=== PATIENT | female | born 1995 | race Caucasian/White ===

== ENCOUNTER 2017-07-24 15:59 | Emergency (ER) | payer BC, OTHER ==
--- NOTE | 2017-07-24 16:49 | ER Document Report ---
ED Medical Screen (RME) - General Chief Complaint: Vaginal Bleeding Stated Complaint: VAGINAL BLEEDING Time Seen by Provider: 07/24/17 16:47 Mode of Arrival: Ambulatory Information source: Patient TRAVEL OUTSIDE OF THE [place] IN LAST 30 DAYS: No - HPI Patient complains to provider of: vaginal bleeding in Onset: Just prior to arrival - pt is approx 15 weeks along with c/o heavy vaginal bleeding and mild cramping for the past 2 hours. - Related Data Allergies/Adverse Reactions: No Known Allergies Allergy (Verified 07/24/17 16:31) Home Medications: Current Home Medications Enoxaparin Sodium [Lovenox Inj 40 mg/0.4 ml Disp.syrin] 1 dose SUBCUT DAILY 05/02 [History] Labetalol HCl 1 tab PO BID 07/24/17 [History] Sertraline HCl [Zoloft] 1 tab PO DAILY 07/24/17 [History] Trazodone HCl 1 tab PO DAILY 07/24/17 [History] Past Medical History - Social History Chew tobacco use (# tins/day): No Frequency of alcohol use: Occasional Drug Abuse: None Renal/ Medical History: Denies: Hx Peritoneal Dialysis Physical Exam - Vital signs Vitals: Temp Pulse Resp BP Pulse Ox 99.0 F 104 H 22 H 141/77 H 98 07/24/17 16:10 07/24/17 16:10 07/24/17 16:10 07/24/17 16:10 07/24/17 16:10 Course - Vital Signs Vital signs: Temp Pulse Resp BP Pulse Ox 99.0 F 104 H 22 H 141/77 H 98 07/24/17 16:10 07/24/17 16:10 07/24/17 16:10 07/24/17 16:10 07/24/17 16:10
[2017-07-24 17:25] LABS: ABSOLUTE EOSINOPHILS # (AUTO) 0.3 10^3/uL (0.0-0.6); ABSOLUTE LYMPHOCYTES (AUTO) 2.4 10^3/uL (0.5-4.7); ABSOLUTE MONOCYTES (AUTO) 0.7 10^3/uL (0.1-1.4); ABSOLUTE NEUT (AUTO) 7.1 10^3/uL (1.7-8.2); BASOPHILS % (AUTO) 0.2 % (0-2); EOSINOPHILS % (AUTO) 2.6 % (0-6); HEMATOCRIT 37.3 % (36.0-47.0); HGB HCT DIFFERENCE 1.7; LYMPHOCYTES % (AUTO) 23.1 % (13-45); MEAN CORPUSCULAR HEMOGLOBIN 29.8 pg (27.0-33.4); MEAN CORPUSCULAR VOLUME 85 fl (80-97); MONOCYTES % (AUTO) 6.7 % (3-13); RED BLOOD COUNT 4.38 10^6/uL (3.72-5.28); RED CELL DISTRIBUTION WIDTH 12.8 % (11.5-14.0); SEGMENTED NEUTROPHILS % (AUTO) 67.4 % (42-78); WHITE BLOOD COUNT 10.6 10^3/uL (4.0-10.5)
[2017-07-24 17:40] LABS: ALANINE AMINOTRANSFERASE 33 U/L (9-52); ALBUMIN 3.8 g/dL (3.5-5.0); ALKALINE PHOSPHATASE 76 U/L (38-126); ANION GAP 13 (5-19); ASPARTATE AMINO TRANSFERASE 15 U/L (14-36); BILIRUBIN,DIRECT 0.3 mg/dL (0.0-0.4); BILIRUBIN,TOTAL 0.3 mg/dL (0.2-1.3); BLOOD UREA NITROGEN 8 mg/dL (7-20); CALCIUM 9.4 mg/dL (8.4-10.2); CARBON DIOXIDE 22 mmol/L (22-30); CHLORIDE 105 mmol/L (98-107); CREATININE RESULT 0.76 mg/dL (0.52-1.25); GLUCOSE 91 mg/dL (75-110); POTASSIUM 4.2 mmol/L (3.6-5.0); SODIUM 139.9 mmol/L (137-145)
[2017-07-24 17:44] LABS: APPEARANCE,URINE SLIGHTLY-CLOUDY; BILIRUBIN,URINE NEGATIVE (NEGATIVE); GLUCOSE, URINE NEGATIVE (NEGATIVE); KETONES,URINE TRACE mg/dL (NEGATIVE); LEUKOCYTE ESTERASE,URINE NEGATIVE (NEGATIVE); NITRITE,URINE NEGATIVE (NEGATIVE); PROTEIN,URINE 30 mg/dL (NEGATIVE); URINE SPECIFIC GRAVITY 1.033
--- NOTE | 2017-07-24 18:23 | ER Document Report ---
ED GI/ <FLOWER SAUCEDO - Last Filed: 07/24/17 19:19> - General Mode of Arrival: Ambulatory Information source: Patient TRAVEL OUTSIDE OF THE [place] IN LAST 30 DAYS: No <SUGEY ZHANG - Last Filed: 07/24/17 19:44> - General Chief Complaint: Vaginal Bleeding Stated Complaint: VAGINAL BLEEDING Time Seen by Provider: 07/24/17 16:47 Notes: Patient is a 22-year-old female who presents to the emergency department today for complaints of vaginal bleeding. Patient states she has had vaginal bleeding off and on since 07/02. Patient is . Patient is also on Lovenox for factor V deficiency. Patient denies passing clots. (SUGEY ZHANG) - Related Data Allergies/Adverse Reactions: No Known Allergies Allergy (Verified 07/24/17 16:31) Home Medications: Current Home Medications Enoxaparin Sodium [Lovenox Inj 40 mg/0.4 ml Disp.syrin] 1 dose SUBCUT DAILY 05/02 [History] Labetalol HCl 1 tab PO BID 07/24/17 [History] Sertraline HCl [Zoloft] 1 tab PO DAILY 07/24/17 [History] Trazodone HCl 1 tab PO DAILY 07/24/17 [History] Past Medical History - General Information source: Patient - Social History Smoking Status: Never Smoker Cigarette use (# per day): No Chew tobacco use (# tins/day): No Frequency of alcohol use: Occasional Drug Abuse: None Lives with: Family Family History: Reviewed & Not Pertinent Patient has suicidal ideation: No Patient has homicidal ideation: No - Medical History Medical History: Negative Surgical Hx: Negative <SUGEY ZHANG - Last Filed: 07/24/17 19:44> Review of Systems - Review of Systems Constitutional: No symptoms reported EENT: No symptoms reported Cardiovascular: No symptoms reported Respiratory: No symptoms reported Gastrointestinal: No symptoms reported Genitourinary: No symptoms reported Female Genitourinary: See HPI, , Vaginal bleeding Musculoskeletal: No symptoms reported Skin: No symptoms reported Hematologic/Lymphatic: No symptoms reported Neurological/Psychological: No symptoms reported -: Yes All other systems reviewed and negative <SUGEY ZHANG - Last Filed: 07/24/17 19:44> Physical Exam - Vital signs Interpretation: Normal - General General appearance: Appears well, Alert - HEENT Head: Normocephalic, Atraumatic Eyes: Normal Pupils: PERRL - Respiratory Respiratory status: No respiratory distress Chest status: Nontender Breath sounds: Normal Chest palpation: Normal - Cardiovascular Rhythm: Regular Heart sounds: Normal auscultation Murmur: No - Abdominal Inspection: Obese Distension: No distension Bowel sounds: Normal Tenderness: Nontender - soft Organomegaly: No organomegaly - Back Back: Normal, Nontender - Extremities General upper extremity: Normal inspection, Normal ROM. No: Edema General lower extremity: Normal inspection, Normal ROM. No: Edema - Neurological Neuro grossly intact: Yes Cognition: Normal Orientation: AAOx4 [place] Coma Scale Eye Opening: Spontaneous [place] Coma Scale Verbal: Oriented [place] Coma Scale Motor: Obeys Commands [place] Coma Scale Total: 15 Speech: Normal - Psychological Associated symptoms: Normal affect, Normal mood - Skin Skin Temperature: Warm Skin Moisture: Dry Skin Color: Normal <SUGEY ZHANG - Last Filed: 07/24/17 19:44> - Vital signs Vitals: Temp Pulse Resp BP Pulse Ox 99.0 F 104 H 22 H 141/77 H 98 07/24/17 16:10 07/24/17 16:10 07/24/17 16:10 07/24/17 16:10 07/24/17 16:10 Course - Laboratory Result Diagrams: 07/24/17 17:00 07/24/17 17:00 - Diagnostic Test Radiology reviewed: Reports reviewed - Ultrasound shows a 15 week 6 day viable IUP. There is no subchorionic bleed or other abnormality noted. <FLOWER SAUCEDO - Last Filed: 07/24/17 19:19> - Laboratory Result Diagrams: 07/24/17 17:00 07/24/17 17:00 <SUGEY ZHANG - Last Filed: 07/24/17 19:44> - Re-evaluation Re-evalutation: 07/24/17 19:20 Ultrasound shows a 15 week 6 day intrauterine with heart rate 153 and no abnormalities. Specifically no subchorionic bleeding. Hemoglobin is 13.0, this is higher than it was during any of the lab testing done in 2015 with her other . When I reviewed these findings with the patient, she became insisting about wanting to know what was going on. It appears that she has seen her [employer] doctor several times for the same complaint, the bleeding has been an ongoing problem. She states they have only given her a written list of possible causes of bleeding . She began pushing this to the point that I informed her that it appeared the only urgency at this time was to satisfy her curiosity about what was causing her bleeding. This prompted her to break down into tears and that is when her spouse informed me about the frustration of multiple visits to her doctors for the same problem. She is again encouraged to follow-up with her [employer] doctor this week for a more thorough exam to determine what the source of her bleeding might be. (FLOWER SAUCEDO) - Vital Signs Vital signs: Temp Pulse Resp BP Pulse Ox 98.1 F 97 20 118/78 98 07/24/17 19:14 07/24/17 19:14 07/24/17 19:14 07/24/17 19:14 07/24/17 16:10 - Laboratory Laboratory results interpreted by me: 07/24/17 07/24/17 07/24/17 16:50 17:00 17:00 WBC 10.6 H Beta HCG, Quant 51980.00 H Urine Protein 30 H Urine Ketones TRACE H Urine Blood MODERATE H Urine Urobilinogen 2.0 H Discharge <FLOWER SAUCEDO - Last Filed: 07/24/17 19:19> <SUGEY ZHANG - Last Filed: 07/24/17 19:44> - Discharge Clinical Impression: with 15 completed weeks gestation, Vaginal bleeding in patient at less than 20 weeks gestation, Factor V deficiency Condition: Stable Disposition: HOME, SELF-CARE Additional Instructions: Your ultrasound shows a measuring 15 weeks 6 days, with a heart rate of 153. There is no subchorionic bleed or other abnormality noted on ultrasound. Your hemoglobin today is 13.0, this is higher than it was during any of the lab work done 2 years ago with your . You should drink plenty of fluids. Rest. Follow-up with your [employer] doctor on Wednesday. RETURN TO THE EMERGENCY ROOM IF ANY NEW OR WORSENING SYMPTOMS. Scribe Attestation: 07/24/17 18:56 I personally performed the services described in the documentation, reviewed and edited the documentation which was dictated to the scribe in my presence, and it accurately records my words and actions. (FLOWER SAUCEDO) Scribe Documentation - Scribe Written by Scribe:: Robert Riggins, 07/24/2017 194 acting as scribe for :: Ambrocio <SUGEY ZHANG - Last Filed: 07/24/17 19:44>
--- NOTE | 2017-07-24 18:24 | RADIOLOGY REPORT (SQ) ---
EXAM DESCRIPTION: U/S OB 14+ TA/1 GEST W/DOPPLER COMPLETED DATE/TIME: 07/24/2017 6:15 pm REASON FOR STUDY: bleeding in COMPARISON: None. TECHNIQUE: Transabdominal static and realtime grayscale images acquired of the pelvis. Additional se lected spectral and color Doppler images recorded. All images stored on PACs. bHCG: Not available. LIMITATIONS: None. FINDINGS: FETUS: Living intrauterine . EGA: 15 weeks 6 days MAN: 01/09/2019 FHR: 153 beats per minute. SUBCHORIONIC BLEED: No. SIZE OF BLEED: Not applicable. UTERUS: No masses. No anomalies. CERVICAL LENGTH: 3.8 cm. Closed. RIGHT ADNEXA: Ovary not identified. No adnexal free fluid. No adnexal masses. LEFT ADNEXA: Ovary not identified. No adnexal free fluid. No adnexal masses. FREE FLUID: None. OTHER: No other significant finding. IMPRESSION: LIVING INTRAUTERINE . EGA 15 WEEKS 6 DAYS. Trimester of : First - 0 to 13 weeks. TECHNICAL DOCUMENTATION: JOB ID: [id number] [employer]- All Rights Reserved
[2017-07-24 19:15] VITALS: BP 118/78
== END 2017-07-24 19:19 | disposition home or self-care (01) ==
LOC: ER 15:59
DX: O46.92 Antepartum hemorrhage, unspecified, second trimester (principal); N93.9 Abnormal uterine and vaginal bleeding, unspecified; Z79.899 Other long term (current) drug therapy; Z79.01 Long term (current) use of anticoagulants; Z3A.15 15 weeks gestation of pregnancy
CPT/HCPCS: 36415; 76805; 80053; 81001; 84702; 85025; 93976; 99284